=== PATIENT | female | born 1975 | race Caucasian/White ===

== ENCOUNTER 2018-08-24 11:23 | Emergency (ER) | payer BC, MEDICAID, SELFPAY ==
[~2018-08-24] VITALS: Ht 170.2 cm; Wt 103.7 kg
--- NOTE | 2018-08-24 13:55 | NUR ---
FROM LOBBY TO ROOM AT THIS TIME
[2018-08-24 14:05] LABS: BASOPHILS # (AUTO) 0.02 x10^3/uL (0-0.1); BASOPHILS % (AUTO) 0 % (0-1); EOSINOPHILS # (AUTO) 0.08 x10^3/uL (0-0.4); EOSINOPHILS % (AUTO) 1 % (1-7); LYMPHOCYTES # (AUTO) 1.96 x10^3/uL (1-3.4); LYMPHOCYTES % (AUTO) 25 % (22-44); MD NO; MEAN CORPUSCULAR HEMOGLOBIN 32.6 pg (27.0-34.8); MEAN CORPUSCULAR HGB CONC 33.7 g/dL (32.4-35.8); MEAN CORPUSCULAR VOLUME 96.8 fL (80-100); MEAN PLATELET VOLUME 8.2 fL (7.4-10.4); MONOCYTES # (AUTO) 0.33 x10^3/uL (0.2-0.8); MONOCYTES % (AUTO) 4 % (2-9); NEUTROPHILS % (AUTO) 70 % (42-75); PLATELET COUNT 250 x10^3/uL (130-400); RED CELL DISTRIBUTION WIDTH 13.2 % (9.6-15.2)
[2018-08-24 14:15] LABS: ALANINE AMINOTRANSFERASE 107 U/L (12-78); ALBUMIN 3.9 g/dL (3.4-5.0); ANION GAP 7 mmol/L (5-15); CALCIUM 9.2 mg/dL (8.5-10.1); CHLORIDE 106 mmol/L (98-107)
--- NOTE | 2018-08-24 14:16 | NUR ---
PT STATES SHE HAS BEEN "HAVING BLOODY STOOL FOR ABOUT A WEEK". SHE ALSO REPORTS N/V/D FOR ABOUT A WEEK ALSO. PT SAYS HER ARMS GET TINGLES SOMETIMES, THIS HAS BEEN GOING ON FOR SEVERAL DAYS. PT REPORTS HER LAST BLOODY STOOL WAS THIS MORNING AND SHE THREW UP THIS MORNING WELL.
[2018-08-24 14:17] LABS: ALKALINE PHOSPHATASE 94 U/L (45-117); BILIRUBIN,TOTAL 0.3 mg/dL (0.2-1.0); TOTAL PROTEIN 7.8 g/dL (6.4-8.2)
[2018-08-24] MEDS ORDERED: BUPR150T73 PO (14:20)
--- NOTE | 2018-08-24 14:27 | NUR ---
REMBERTO RN: URINE SAMPLE OBTAINED AND SENT TO LAB.
[2018-08-24 14:39] LABS: MICROSCOPIC NOT IND
[2018-08-24 14:45] LABS: CULTURE INDICATED? NO
--- NOTE | 2018-08-24 15:07 | NUR ---
PT C/O NAUSEA, ASKED FOR MEDICATION. I SPOKE WITH DR. MARTÍNEZ AND REQUESTED WILIAN. CHART UP FOR RECHECK.
[2018-08-24] MEDS ORDERED: ONDANSETRON ODT 4 MG ONE (15:09)
[2018-08-24 15:30] VITALS: BP 121/76
[2018-08-24] MEDS ORDERED: ONDANSETRON ODT 4 MG PO ONE (15:30)
--- NOTE | 2018-08-24 15:43 | NUR ---
ALL DC INSTRUCTIONS EXPLAINED TO PT AND PT VERBALIZED UNDERSTANDING. PT GIVEN PAPER PRESCRIPTION. PT ALSO GIVEN A WORK NOTE STATING SHE CAN RETURN TO WORK ON 08/26/18 WITH NO RESTRICTIONS, PER DR. MARTÍNEZ. NO IV. PT DC'D IN STABLE CONDITION, STEADY ON FEET.
== END 2018-08-24 15:44 | disposition home or self-care (01) ==
LOC: ED 15:40
DX: R07.89 Other chest pain (principal); F41.1 Generalized anxiety disorder; K62.5 Hemorrhage of anus and rectum; R19.7 Diarrhea, unspecified; Z90.49 Acquired absence of other specified parts of digestive tract
CPT/HCPCS: 36415; 74021; 80053; 81003; 83690; 85025; 93005; 99284; Q0162